=== PATIENT | female | born 1960 | race African-American/Black ===

== ENCOUNTER 2023-03-25 12:38 | Outpatient (OUT) | payer OTHER, SELFPAY ==
--- NOTE | 2023-03-25 12:53 | PM.CN ---
Consult Note: HPI Data of Consult Requesting Physician: LUPE TOUSSAINT NP Primary Care Provider: ALVIN LUU Consult Narrative Narrative: Mary Maldonado a 62 year old female presents for follow up on chronic low back while on lyrica 50mg 2-3x/day, norco 5/325 TID, flexeril 5mg BID. cc:: CC: LUPE TOUSSAINT NP Review of Systems ROS Status of ROS 10 or more systems reviewed and unremarkable except as noted in history and below Exam Narrative Exam Narrative: Patient continues to have intense intermittent sudden sharp pain at previous ablation site in low back as well as chronic moderate-severe low back pain . Today rating pain 6-7/10 Constitutional Common normals: no apparent distress, oriented x3, healthy appearing, alert and well nourished General appearance: cooperative Nutritional appearance: overweight HENMT Common normals: normocephalic Head and scalp: normocephalic Mouth: oral and palatal mucosa normal Eye Common normals: PERRL Pupil: PERRL Neck & C-Spine Common normals: full ROM General: normal visual inspection Chest Common normals: inspection of chest normal Respiratory Common normals: normal respiratory effort, no retractions and no use of accessory muscles Back & Pelvis Common normals: thoracic and lumbar spine normal to inspection Lumbar spine/lower back: ROM limited, pain with ROM, paraspinal muscle tenderness and straight leg raise positive left (left side low back pain ) Other: bilateral low back pain l>R Extremity Common normals: normal to inspection, full ROM, no calf tenderness and no pedal edema Neuro Common normals: oriented x3, CN's II-XII intact bilaterally, moves all extremities, no focal motor deficits, no sensory deficits noted, deep tendon reflexes 2+ bilaterally and gait normal Sensorium/orientation: alert Speech: speech normal Gait (neuro): antalgic Motor exam: strength 5/5 throughout and no movement abnormalities noted Psych Common normals: mental status grossly normal, thought process normal, cooperative, affect normal, speech normal and activity/motor behavior normal Speech: normal speech Thought process: normal thought process Assessment and Plan Assessment and Plan (1) Lumbar spondylosis: (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: Assessment and Plan: -uds previously showed marijuana (patient instructed at todays visit to stop utilizing for future opioid refills) -[facility] reviewed -nalaxone discussed and encouraged to fill (previously ordered) (3) Muscle spasm: Plan -continue lyrica 50mg 2-3x/day -increase norco to 7.5/325 at next fill (okay to fill early as patient is going to use current 5/325 as 1.5 tablets until next fill as she pays [facility] for all her medications and does not want to waste these, does not use additional tylenol) -lumbar MRI without contrast -stop marijuana use (previously screened positive) -continue flexeril 5mg BID muscle spasms -follow up 3 months
== END 2023-03-25 12:39 | disposition home or self-care (01) ==
PROVIDERS: PCP Family Medicine; Visit Provider Nurse Practitioner
DX: M47.816 Spondylosis without myelopathy or radiculopathy, lumbar region (principal); Z79.891 Long term (current) use of opiate analgesic; M62.838 Other muscle spasm
CPT/HCPCS: G0463